=== PATIENT | female | born 1975 ===

== ENCOUNTER 2017-12-12 08:51 | Emergency (ER) | payer OTHER ==
[2017-12-12 09:09] VITALS: BP 136/92; PULSE 85; RESP 16; TEMP 98; O2SAT 100
--- NOTE | 2017-12-12 09:41 | ED PDOC ---
HPI: Abdomen Time Seen by Provider: 12/12/17 09:03 Chief Complaint (Nursing): Abdominal Pain Chief Complaint (Provider): abdominal pain History Per: Patient History/Exam Limitations: no limitations Onset/Duration Of Symptoms: Other (1 month) Current Symptoms Are (Timing): Intermittent Episodes Pain Scale Rating Of: 8 Location Of Pain/Discomfort: Epigastric Quality Of Discomfort: Burning Associated Symptoms: Nausea Exacerbating Factors: Food Alleviating Factors: Other (ranitidine) Additional Complaint(s): 42 yo ,f, PMHx/o Gastritis, H pilory infection resolved, Anemia presents to ED c/o epigastric abdominal pain started 1 months ago, intermittent, burning, 8/10 intensity, associated with nausea, aggravated with meals, alleviated with Ranitidine. Denies fever, vomiting, diarrhea, chest pain, palpitation, SOB, cough, heartburn. Reports had treatment for H pilory infection 3 months ago and iron for anemia, but pain persists. Reports also left lateral upperarm focal area of numbness for the last 4 days, intermittent, noticed also positional when sleeping over left side. denies headache, dizziness, cervical pain, cervical trauma, syncope, weakness, gait imbalance. PMD: Dr Mccarty" [place] Past Medical History Reviewed: Historical Data, Nursing Documentation, Vital Signs Vital Signs: Last Vital Signs Temp 98.0 F 12/12/17 09:03 Pulse 85 12/12/17 09:03 Resp 16 12/12/17 09:03 BP 136/92 H 12/12/17 09:03 Pulse Ox 100 12/12/17 11:09 - Medical History PMH: Anemia, Gastritis - Surgical History Surgical History: No Surg Hx - Family History Family History: States: [place] (father), Hypertension (parents) - Social History Alcohol: None - Home Medications Home Medications: Ambulatory Orders Medication Instructions Recorded Ranitidine HCl [Zantac 75] 75 mg PO BID #20 tablet 12/12/17 - Allergies Allergies/Adverse Reactions: Allergies Allergy/AdvReac Type Severity Reaction Status Date / Time No Known Allergies Allergy Verified 12/12/17 09:08 Review of Systems ROS Statement: Except As Marked, All Systems Reviewed And Found Negative Gastrointestinal: Positive for: Nausea, Abdominal Pain Neurological: Positive for: Numbness (left upper arm) Physical Exam - Physical Exam Appears: Positive for: Well, No Acute Distress Head Exam: Positive for: ATRAUMATIC, NORMOCEPHALIC Skin: Positive for: Normal Color Eye Exam: Positive for: Normal appearance Neck: Positive for: Normal, Supple Cardiovascular/Chest: Positive for: Regular Rate, Rhythm, Chest Non Tender. Negative for: Murmur Respiratory: Positive for: Normal Breath Sounds. Negative for: Crackles, Wheezing Gastrointestinal/Abdominal: Positive for: Soft, Tenderness (epigastric tenderness). Negative for: Distended, Guarding, Rebound Back: Positive for: Normal Inspection, L CVA Tenderness Extremity: Positive for: Normal ROM. Negative for: Tenderness, Pedal Edema Neurologic/Psych: Positive for: Alert, Oriented. Negative for: Motor/Sensory Deficits - Laboratory Results Result Diagrams: 12/12/17 09:58 12/12/17 09:58 - ECG ECG: Positive for: Interpreted By Me ECG Rhythm: Positive for: Normal QRS, Normal ST Segment, Sinus Rhythm O2 Sat by Pulse Oximetry: 100 Medical Decision Making Medical Decision Makin:40 AM Impression Acute Gastritis LUE Numbness Differential PUD, Acute pancreatitis, Acute cholecystitis, GERD, esophagitis Plan CBC, CMP, lipase ,troponin Urine dip, Urine preg test EKG ABd US CT Cervical spine -Zofran 4 mg IV -Pepcid 20 mg IV -Reevaluation 10:36 CBC, CMP normal tropoinin normal . EKG: NSR urine dip,urine preg test normal. CT Cervical spine: No fracture, no retropulsed fragments. some minor disc space narrowing noted the C5-C6 level with small osteophytic ridge disc bulge complex slightly left. minor degenerative spondylosis C5-C6 level as described. Impression Acute Gastritis Cervical Spondylosis C5-C6 Disposition - Clinical Impression Clinical Impression: Abdominal pain, Acute gastritis - Disposition Referrals: Torito Bullock MD [Medical Doctor] - Disposition Time: 16:33 Condition: STABLE Additional Instructions: Return to ER for any worse or new symptoms. Take medications as directed. Prescriptions: Ranitidine HCl [Zantac 75] 75 mg PO BID #20 tablet Instructions: Acute Abdomen (Belly Pain), Adult (DC), Vomiting in Children (ED) , Gastroenteritis in Children (ED), Gastroenteritis (ED) Forms: [employer] (Georgian) Print Language: ANDORRAN
[2017-12-12 10:09] LABS: BASO % 0.5 % (0.0-2.0); EOS % 0.4 % (0.0-4.0); LYMPH # 1.2 K/uL (1.0-4.3); MEAN CELL VOLUME 85.4 fl (81.0-99.0); MEAN CORPUSCULAR HEMOGLOBIN 28.5 pg (27.0-31.0); MEAN CORPUSCULAR HGB CONC 33.3 g/dL (33.0-37.0); MEAN PLATELET VOLUME 7.3 fl (7.2-11.7); MONO # 0.3 K/uL (0.0-0.8); MONO % 3.9 % (0.0-10.0); NEUT % 77.2 % (50.0-75.0); NRBC % 0.3 % (0.0-0.0); RBC 4.92 Mil/uL (3.80-5.20); RED CELL DISTRIBUTION WIDTH 19.8 % (11.5-14.5); WHITE BLOOD COUNT 6.5 K/uL (4.8-10.8)
[2017-12-12 10:20] LABS: ALB/GLOB RATIO 1.1 (1.0-2.1); ALBUMIN 4.4 g/dL (3.5-5.0); ALT/SGPT 40 U/L (9-52); AST/SGOT 25 U/L (14-36); BLOOD UREA NITROGEN 9 mg/dl (7-17); CALCIUM 9.1 mg/dL (8.4-10.2); GFR AFRICAN-AMERICAN > 60; GFR NON-AFRICAN AMERICAN > 60; LIPASE 129 U/L (23-300)
--- NOTE | 2017-12-12 10:50 | CT ---
PROCEDURE: CT scan of the cervical spine dated 12/12/2017 HISTORY: Left upper arm numbness COMPARISON: None available. TECHNIQUE: Axial computed tomography images were obtained of the cervic fat al spine without the use of intravenous contrast. Coronal and sagittal reformatted images were created and reviewed. Radiation dose: Total exam DLP = 414.03 mGy-cm. This CT exam was performed using one or more of the following dose reduction techniques: Automated exposure control, adjustment of the mA and/or kV according to patient size, and/or use of iterative reconstruction technique. FINDINGS: VERTEBRAE: Current study reveals no acute compression fractures no retropulsed fragments. Vertebral bodies exhibit normal stature. Vertebral bodies and facets normally aligned. Some minor on DISCS/SPINAL CANAL/NEURAL FORAMINA: Minor disc space narrowing noted at the C5-C6 level with small osteophytic ridge disc bulge complex slightly left. Disc appears to minimally indent the ventral surface of thecal sac though does not appear to cause significant cord compression so far as can be seen. There is minimal degenerative squaring of the uncovertebral joints. Facets a prominent. Central canal and exit foramina do appear adequate. Remaining levels exhibit relatively adequate disc height. No disc herniation or significant disc bulges. Central canal and exit foramina do appear adequate. PARASPINAL SOFT TISSUES: Unremarkable. OTHER FINDINGS: None. IMPRESSION: No acute fractures. Minor degenerative spondylosis C5-C6 level as described.
--- NOTE | 2017-12-12 13:23 | US ---
HISTORY: epigastric abd pain.r/o cholecystitis COMPARISON: None. TECHNIQUE: Sonographic evaluation of the right upper quadrant of the abdomen. FINDINGS: LIVER: Liver measures 17.5 cm in length. Normal echogenicity of the liver parenchyma. No mass. No intrahepatic bile duct dilatation. GALLBLADDER: Unremarkable. No gallstones. No sonographic Reza sign COMMON BILE DUCT: Measures mm. No stones. No dilatation. PANCREAS: Unremarkable as visualized. No mass. No ductal dilatationAll. RIGHT KIDNEY: Measures 12.1 x 6.3 x 4.3 cm in length. Normal echogenicity. No calculus, mass, or hydronephrosis. AORTA: No aneurysmal dilatation. IVC: Unremarkable. OTHER FINDINGS: None . IMPRESSION: No evidence of cholelithiasis
== END 2017-12-12 16:33 | disposition home or self-care (01) ==
LOC: H.ER 08:51
DX: K29.00 Acute gastritis without bleeding (principal); M50.222 Other cervical disc displacement at C5-C6 level
CPT/HCPCS: 72125; 76705; 80053; 81025; 83690; 84484; 85025; 96374; 96375; 99282; J2405

== ENCOUNTER 2018-02-04 08:56 | Emergency (ER) | payer SELFPAY ==
[2018-02-04 09:20] VITALS: RESP 16; O2SAT 98
[2018-02-04] MEDS ORDERED: Sodium Chloride 0.9% 1,000 ML IV STA (09:23)
[2018-02-04] MEDS ORDERED: Alum-Mag Hydrox-Simethicone Susp (30 mL) PO ONE (09:39)
[2018-02-04] MEDS ORDERED: Alum-Mag Hydrox-Simethicone Susp (30 mL) ONE (10:27)
[2018-02-04 10:35] LABS: BASO % 0.6 % (0.0-2.0); EOS # 0.1 K/uL (0.0-0.7); EOS % 1.7 % (0.0-4.0); HEMOGLOBIN 12.8 g/dL (12.0-16.0); LYMPH # 1.2 K/uL (1.0-4.3); LYMPH % 22.7 % (20.0-40.0); MEAN CELL VOLUME 88.3 fl (81.0-99.0); MEAN CORPUSCULAR HEMOGLOBIN 28.9 pg (27.0-31.0); MEAN CORPUSCULAR HGB CONC 32.8 g/dL (33.0-37.0); MEAN PLATELET VOLUME 7.9 fl (7.2-11.7); MONO # 0.2 K/uL (0.0-0.8); MONO % 4.7 % (0.0-10.0); NEUT # 3.7 K/uL (1.8-7.0); NEUT % 70.3 % (50.0-75.0); NRBC % 0.1 % (0.0-0.0); RBC 4.41 Mil/uL (3.80-5.20); RED CELL DISTRIBUTION WIDTH 14.1 % (11.5-14.5); WHITE BLOOD COUNT 5.3 K/uL (4.8-10.8)
[2018-02-04 10:44] LABS: SQUAMOUS EPITHIAL < 1 /hpf (0-5); URINE BILIRUBIN NEGATIVE (NEGATIVE); URINE BLOOD SMALL (NEGATIVE); URINE CLARITY CLEAR (Clear); URINE COLOR STRAW (YELLOW); URINE GLUCOSE (UA) NEG (Normal); URINE LEUKOCYTE ESTERASE NEG Leu/uL (Negative); URINE PROTEIN NEGATIVE (NEGATIVE); URINE UROBILINOGEN 0.2-1.0 mg/dL (0.2-1.0)
[2018-02-04 10:47] LABS: ALB/GLOB RATIO 1.1 (1.0-2.1); ALBUMIN 4.2 g/dL (3.5-5.0); ALT/SGPT 36 U/L (9-52); AST/SGOT 26 U/L (14-36); BLOOD UREA NITROGEN 8 mg/dl (7-17); CALCIUM 9.6 mg/dL (8.4-10.2); GFR AFRICAN-AMERICAN > 60; GFR NON-AFRICAN AMERICAN > 60; LIPASE 149 U/L (23-300)
--- NOTE | 2018-02-04 11:36 | RAD ---
HISTORY: Central chest pain COMPARISON: No prior. TECHNIQUE: Chest PA and lateral FINDINGS: LUNGS: No acute consolidation. Tiny densities right CP angle region could represent some minor overlying or vessel on end artifact however tiny granuloma not excluded. PLEURA: No significant pleural effusion identified. No pneumothorax apparent. CARDIOVASCULAR: Normal. OSSEOUS STRUCTURES: Minor multilevel degenerative spondylosis of the thoracic spine. The. VISUALIZED UPPER ABDOMEN: Normal. OTHER FINDINGS: None. IMPRESSION: No acute consolidation. Insert
--- NOTE | 2018-02-04 12:18 | ED PDOC ---
HPI: General Adult Time Seen by Provider: 02/04/18 09:09 Chief Complaint (Nursing): Chest Pain Chief Complaint (Provider): Chest Pain History Per: Patient History/Exam Limitations: no limitations Onset/Duration Of Symptoms: Days (x1 month) Current Symptoms Are (Timing): Still Present Additional Complaint(s): 42 y/o female with pmhx of gastritis, who re-presents to the ED complaining of epigastric burning and chest discomfort associated with nausea ongoing intermittently for over a month. Denies hematemesis, bloody stools, melena, weight loss, or fever. Patient reports she completed a 2 week course of Omeprazole which improved her symptoms. Patient also denies shortness of breath , cough, or radiation of pain. PMD: Non-[facility] Provider Past Medical History Reviewed: Historical Data, Nursing Documentation, Vital Signs Vital Signs: Last Vital Signs Temp 98.2 F 02/04/18 12:25 Pulse 68 02/04/18 12:25 Resp 16 02/04/18 12:25 BP 117/74 02/04/18 12:25 Pulse Ox 98 02/04/18 12:30 - Medical History PMH: Anemia, Gastritis - Surgical History Surgical History: No Surg Hx - Family History Family History: States: [place] (father), Hypertension (parents) - Social History Current smoker - smoking cessation education provided: No Alcohol: None Drugs: Denies - Home Medications Home Medications: Ambulatory Orders Medication Instructions Recorded Naproxen [Naproxen] 500 mg PO PRN PRN 02/04/18 Omeprazole 40 mg PO DAILY #20 capsule. 02/04/18 Omeprazole [Omeprazole] 40 mg PO DAILY 02/04/18 Ondansetron ODT [Zofran ODT] 4 mg PO Q6 PRN #10 odt 02/04/18 - Allergies Allergies/Adverse Reactions: Allergies Allergy/AdvReac Type Severity Reaction Status Date / Time No Known Allergies Allergy Verified 12/12/17 09:08 Review of Systems ROS Statement: Except As Marked, All Systems Reviewed And Found Negative Constitutional: Negative for: Fever, Weight loss Cardiovascular: Positive for: Chest Pain Respiratory: Negative for: Cough, Shortness of Breath Gastrointestinal: Positive for: Nausea, Abdominal Pain. Negative for: Melena, Hematochezia, Hematemesis Physical Exam - Reviewed Nursing Documentation Reviewed: Yes Vital Signs Reviewed: Yes - Physical Exam Appears: Positive for: Non-toxic, No Acute Distress Head Exam: Positive for: ATRAUMATIC, NORMAL INSPECTION, NORMOCEPHALIC Skin: Positive for: Normal Color, Warm, Dry. Negative for: Rash Eye Exam: Positive for: EOMI, Normal appearance, PERRL Neck: Positive for: Normal, Painless ROM, Supple Cardiovascular/Chest: Positive for: Regular Rate, Rhythm. Negative for: Murmur Respiratory: Positive for: Normal Breath Sounds. Negative for: Respiratory Distress Gastrointestinal/Abdominal: Positive for: Tenderness (upper abdomen) Back: Positive for: Normal Inspection. Negative for: L CVA Tenderness, R CVA Tenderness, Vertebral Tenderness Extremity: Positive for: Normal ROM. Negative for: Pedal Edema, Deformity Neurologic/Psych: Positive for: Alert, Oriented. Negative for: Motor/Sensory Deficits - Laboratory Results Result Diagrams: 02/04/18 10:27 02/04/18 10:27 - ECG O2 Sat by Pulse Oximetry: 98 (RA) Pulse Ox Interpretation: Normal Medical Decision Making Medical Decision Makin:23 Plan: --EKG --CMP --Lipase --Troponin I --CBC --CXR --Maalox 30ml PO --Sodium Chloride 0.9% 1,000 mls/hr --Pepcid 20mg IVP --Urinalysis --Reevaluation Prior records reviewed revealing the patient was seen at this facility December 12 and given an abdominal US which was negative. Today EKG shows NSR at 62 bpm, no ST changes. CXR was negative as read by radiologist. Blood work results were unremarkable. Patient given Maalox and IV Pepcid with resolution of symptoms. Patient states she has an appointment on Friday with clinic for further evaluation. Scribe Attestation: Documented by Chad Fournier, acting as a scribe for Ta Heath III, DO. Provider Scribe Attestation: All medical record entries made by the Scribe were at my direction and personally dictated by me. I have reviewed the chart and agree that the record accurately reflects my personal performance of the history, physical exam, medical decision making, and the department course for this patient. I have also personally directed, reviewed, and agree with the discharge instructions and disposition. Disposition - Clinical Impression Clinical Impression: Chest pain, Acute gastritis - Patient ED Disposition Is Patient to be Admitted: No Counseled Patient/Family Regarding: Studies Performed, Diagnosis, Need For Followup, Rx Given - Disposition Referrals: [facility] [Outside] Disposition: Routine/Home Disposition Time: 12:00 Condition: STABLE Additional Instructions: Followup with clinic for further testing. Prescriptions: Omeprazole 40 mg PO DAILY #20 capsule. Ondansetron ODT [Zofran ODT] 4 mg PO Q6 PRN #10 odt PRN Reason: Nausea/Vomiting Instructions: Chest Pain, Gastritis (DC) Forms: [employer] (Estonian) Print Language: LITHUANIAN
[2018-02-04 12:27] VITALS: BP 117/74; PULSE 68; TEMP 98.2
--- NOTE | 2018-02-05 23:01 | CARD ---
APPROVED REPORT EKG Measurement Heart [id number] CO [id number] <Conclusion> Normal sinus rhythm Normal ECG
== END 2018-02-04 12:30 | disposition home or self-care (01) ==
LOC: H.ER 08:56
DX: K29.00 Acute gastritis without bleeding (principal); R07.89 Other chest pain
CPT/HCPCS: 71046; 80053; 81003; 81025; 83690; 84484; 85025; 93005; 99284; J7040

== ENCOUNTER 2018-05-12 17:48 | Emergency (ER) | payer SELFPAY ==
[2018-05-12 18:45] LABS: BASO % 0.7 % (0.0-2.0); EOS # 0.2 K/uL (0.0-0.7); EOS % 2.9 % (0.0-4.0); HEMOGLOBIN 11.8 g/dL (12.0-16.0); LYMPH # 1.6 K/uL (1.0-4.3); LYMPH % 28.7 % (20.0-40.0); MEAN CORPUSCULAR HEMOGLOBIN 27.9 pg (27.0-31.0); MEAN CORPUSCULAR HGB CONC 32.5 g/dL (33.0-37.0); MEAN PLATELET VOLUME 7.6 fl (7.2-11.7); MONO # 0.4 K/uL (0.0-0.8); MONO % 7.3 % (0.0-10.0); NEUT # 3.4 K/uL (1.8-7.0); NEUT % 60.4 % (50.0-75.0); RBC 4.22 Mil/uL (3.80-5.20); RED CELL DISTRIBUTION WIDTH 18.6 % (11.5-14.5); WHITE BLOOD COUNT 5.5 K/uL (4.8-10.8)
[2018-05-12 19:00] LABS: BLOOD UREA NITROGEN 13 mg/dl (7-17); CALCIUM 8.8 mg/dL (8.4-10.2); GFR AFRICAN-AMERICAN > 60; GFR NON-AFRICAN AMERICAN > 60
--- NOTE | 2018-05-12 19:04 | ED PDOC ---
HPI: General Adult Time Seen by Provider: 05/12/18 18:20 Chief Complaint (Nursing): Weakness/Neurological Deficit Chief Complaint (Provider): Weakness/Neurological Deficit History Per: Patient History/Exam Limitations: no limitations Onset/Duration Of Symptoms: Days (x2 months), Worse Since (x1 week) Current Symptoms Are (Timing): Still Present Additional Complaint(s): 43 year old female presents to the ED for evaluation of left sided body numbness for approx. 2 months, worsening the last week. Patient reports a hx of anemia due to heavy menstrual cycles, and her PMD told her that due to that, she may experience paresthesia to her body such as she is experiencing. She is currently on iron pills, and denies headache, dizziness, weakness, and problems with speech or gait. PMD: not in the area NIHSS Stroke Scale - Date/Time Evaluation Performed Date Performed: 05/12/18 Time Performed: 18:20 When Was NIHSS Performed: Baseline - How Severe is the Stroke Level of Consciousness: 0=Alert LOC to Questions: 0=Both comments correct LOC to commands: 0=Obeys both correctly Best Gaze: 0=Normal Visual: 0=No visual loss Facial: 0=Normal Motor Arm - Left: 0=No drift Motor Arm - Right: 0=No drift Motor Leg - Left: 0=No drift Motor Leg - Right: 0=No drift Limb Ataxia: 0=Absent Sensory: 0=Normal Best Language: 0=No aphasia Dysarthia: 0=Normal articulation Extinction & Inattention (Neglect): 0=Normal, no object Score: 0 Severity Of Stroke: 0 = No Stroke rTPA Inclusion/Exclusion - Refusal of Treatment Patient Refused Treatment: No - Inclusion Criteria for Altepase Patient is 18 years or Older: Yes The Clinical Diagnosis of Ischemic Stroke That is Causing a Potentially Disabling Neurological Deficit: No Time of Onset is Well Established to be Less Than 270 Minute Before Treatment Would Begin: No Risk/Benefit Discussed With Patient/Family Member Present: No Past Medical History Reviewed: Historical Data, Nursing Documentation, Vital Signs Vital Signs: Last Vital Signs Temp 98.1 F 05/12/18 20:41 Pulse 59 L 05/12/18 20:41 Resp 18 05/12/18 20:41 BP 122/77 05/12/18 20:41 Pulse Ox 98 05/13/18 03:06 - Medical History PMH: Anemia, Gastritis - Family History Family History: States: [place] (father), Hypertension (parents) - Home Medications Home Medications: Ambulatory Orders Medication Instructions Recorded Naproxen [Naproxen] 500 mg PO PRN PRN 02/04/18 Omeprazole 40 mg PO DAILY #20 capsule. 02/04/18 Omeprazole [Omeprazole] 40 mg PO DAILY 02/04/18 Ondansetron ODT [Zofran ODT] 4 mg PO Q6 PRN #10 odt 02/04/18 predniSONE [predniSONE Tab] 20 mg PO DAILY #10 tab 05/12/18 - Allergies Allergies/Adverse Reactions: Allergies Allergy/AdvReac Type Severity Reaction Status Date / Time No Known Allergies Allergy Verified 12/12/17 09:08 Review of Systems ROS Statement: Except As Marked, All Systems Reviewed And Found Negative Neurological: Positive for: Numbness (+ paresthesias to entire left side of body ). Negative for: Weakness, Change in Speech, Headache, Dizziness, Other ( issues with gait) Physical Exam - Reviewed Nursing Documentation Reviewed: Yes Vital Signs Reviewed: Yes - Physical Exam Appears: Positive for: No Acute Distress Head Exam: Positive for: ATRAUMATIC, NORMOCEPHALIC Skin: Positive for: Normal Color, Warm, Dry Eye Exam: Positive for: Normal appearance ENT: Positive for: Normal ENT Inspection Neck: Positive for: Normal, Painless ROM, Supple Cardiovascular/Chest: Positive for: Regular Rate, Rhythm. Negative for: Murmur Respiratory: Positive for: Normal Breath Sounds. Negative for: Accessory Muscle Use, Respiratory Distress Gastrointestinal/Abdominal: Positive for: Normal Exam, Soft. Negative for: Tenderness Back: Positive for: Normal Inspection Extremity: Positive for: Normal ROM Neurologic/Psych: Positive for: Alert, Oriented (x3). Negative for: Motor/ Sensory Deficits, Aphasia, Facial Droop - Laboratory Results Result Diagrams: 05/12/18 18:41 05/12/18 18:41 - ECG O2 Sat by Pulse Oximetry: 98 (RA) Pulse Ox Interpretation: Normal Medical Decision Making Medical Decision Making: Time: 1829 Initial Impression: left sided body paresthesia Ddx includes but is not limited to: CVA, peripheral neuropathy, multiple sclerosis, anemia, electrolyte abnormalities Initial Plan: --CT head w/o contrast --EKG --BMP --Urine dipstick --Urine --CBC with differential Scribe Attestation: Documented by Rose Mary Yates, acting as a scribe for Marisel Lyman MD. Provider Scribe Attestation: All medical record entries made by the Scribe were at my direction and personally dictated by me. I have reviewed the chart and agree that the record accurately reflects my personal performance of the history, physical exam, medical decision making, and the department course for this patient. I have also personally directed, reviewed, and agree with the discharge instructions and disposition. Disposition - Clinical Impression Clinical Impression: Paresthesia - Patient ED Disposition Is Patient to be Admitted: Transfer of Care Counseled Patient/Family Regarding: Studies Performed, Diagnosis - Disposition Referrals: Justo Carrillo MD [Medical Doctor] - Disposition: Transfer of Care Disposition Time: 19:00 Condition: STABLE Prescriptions: predniSONE [predniSONE Tab] 20 mg PO DAILY #10 tab Instructions: Paresthesias (DC) Forms: [employer] (Iraqi) Print Language: INDONESIAN Patient Signed Over To: Adiel Nunez
--- NOTE | 2018-05-12 19:23 | ED PDOC ---
- Laboratory Results Result Diagrams: 05/12/18 18:41 05/12/18 18:41 - ECG O2 Sat by Pulse Oximetry: 98 (RA) Medical Decision Making Medical Decision Makin Transfer of care endorsed from Dr. Lyman to Dr. Nunez pending CT Head. 1939 CT Head FINDINGS: Brain: There is no acute intracranial hemorrhage or mass effect. The normal ge -white delineation is preserved. Ventricles: The ventricles are normal in size and configuration for age. Bones/joints: The calvarium is intact. Soft tissues: Unremarkable. Sinuses: The paranasal sinues are normally aerated. Mastoid air cells: Unremarkable as visualized. No mastoid effusion. IMPRESSION: No acute intracranial hemorrhage or edema. Explained results of CT to patient. Advised her to followup with neurology and that she is likely suffering from peripheral parasthesias. Patient requesting "medication" for numbness, advised patient to try short course of steroids for possible cervical radiculopathy causing parasthesias. Patient understands importance of followup, return precautions given. Patient well appearing, no weakness on discharge. Scribe Attestation: Documented by Rose Mary Yates, acting as a scribe for Adiel Nunez MD. Provider Scribe Attestation: All medical record entries made by the Scribe were at my direction and personally dictated by me. I have reviewed the chart and agree that the record accurately reflects my personal performance of the history, physical exam, medical decision making, and the department course for this patient. I have also personally directed, reviewed, and agree with the discharge instructions and disposition. Disposition - Clinical Impression Clinical Impression: Paresthesia - POA Present On Arrival: None - Disposition Referrals: Justo Carrillo MD [Medical Doctor] - Disposition: Routine/Home Disposition Time: 19:40 Condition: STABLE Prescriptions: predniSONE [predniSONE Tab] 20 mg PO DAILY #10 tab Instructions: Paresthesias (DC) Forms: [employer] (Slovenian) Print Language: MOHAWK
[2018-05-12 20:42] VITALS: BP 122/77; PULSE 59; RESP 18; TEMP 98.1
[2018-05-13 03:06] VITALS: O2SAT 98
--- NOTE | 2018-05-13 07:19 | CARD ---
APPROVED REPORT Date of service: 05/12/2018 <Conclusion> Normal sinus rhythm Normal ECG
--- NOTE | 2018-05-13 10:40 | CT ---
Date of service: 05/12/2018 PROCEDURE: CT HEAD WITHOUT CONTRAST. HISTORY: left sided numbness for 2 months COMPARISON: None available. TECHNIQUE: Axial computed tomography images were obtained through the head/brain without intravenous contrast. Radiation dose: Total exam DLP = 802 mGy-cm. This CT exam was performed using one or more of the following dose reduction techniques: Automated exposure control, adjustment of the mA and/or kV according to patient size, and/or use of iterative reconstruction technique. FINDINGS: HEMORRHAGE: No intracranial hemorrhage. BRAIN: No mass effect or edema. No atrophy or chronic microvascular ischemic changes. VENTRICLES: Unremarkable. No hydrocephalus. CALVARIUM: Unremarkable. PARANASAL SINUSES: Unremarkable as visualized. No significant inflammatory changes. MASTOID AIR CELLS: Unremarkable as visualized. No inflammatory changes. OTHER FINDINGS: None. IMPRESSION: Normal CT of the Head. Concordant results (preliminary interpretation) provided by [facility].
== END 2018-05-12 20:45 | disposition home or self-care (01) ==
LOC: H.ER 17:48
DX: R20.2 Paresthesia of skin (principal); D64.9 Anemia, unspecified; N92.0 Excessive and frequent menstruation with regular cycle

== ENCOUNTER 2018-07-03 21:56 | Emergency (ER) | payer SELFPAY ==
[2018-07-03 23:30] VITALS: BP 136/81; PULSE 62; O2SAT 100
--- NOTE | 2018-07-03 23:45 | ED PDOC ---
HPI: Psych/Substance Abuse Time Seen by Provider: 07/03/18 22:18 Chief Complaint (Nursing): Anxiety Chief Complaint (Provider): Anxiety History Per: Patient History/Exam Limitations: no limitations Onset/Duration Of Symptoms: Days (x1) Current Symptoms Are (Timing): Still Present Associated Symptoms: Anxiety. denies: Suicidal Thoughts, Suicidal Plan, Other (HI) Additional Complaint(s): Swathi Fu is a 43 year old female, with a past medical history of gastritis, who presents to the emergency department complaining of p alpitations, feeling very anxious, onset for x1 week. Patient states she has been feeling very nervous and stressed recently. She spoke with her PMD at clinic in regards to symptoms and was referred to a therapist. She spoke with therapist last week and was supposed to get a call back for an appointment but therapist never called. She denies any suicidal or homicidal ideation. No further medical complaints. PMD: Clinic, Dr. Crawford Past Medical History Reviewed: Historical Data, Nursing Documentation, Vital Signs Vital Signs: Last Vital Signs Temp 98.2 F 07/03/18 22:04 Pulse 62 07/03/18 23:30 Resp 19 07/03/18 22:04 BP 136/81 07/03/18 23:30 Pulse Ox 100 07/03/18 23:30 - Medical History PMH: Anemia, Gastritis - Surgical History Surgical History: No Surg Hx - Family History Family History: States: [place] (father), Hypertension (parents) - Home Medications Home Medications: Ambulatory Orders Medication Instructions Recorded Naproxen 500 mg PO PRN PRN 02/04/18 Omeprazole 40 mg PO DAILY 02/04/18 Omeprazole 40 mg PO DAILY #20 capsule. 02/04/18 Ondansetron ODT [Zofran ODT] 4 mg PO Q6 PRN #10 odt 02/04/18 predniSONE [predniSONE Tab] 20 mg PO DAILY #10 tab 05/12/18 - Allergies Allergies/Adverse Reactions: Allergies Allergy/AdvReac Type Severity Reaction Status Date / Time No Known Allergies Allergy Verified 12/12/17 09:08 Review of Systems ROS Statement: Except As Marked, All Systems Reviewed And Found Negative Psych: Positive for: Anxiety, Depression. Negative for: Suicidal ideation (or HI) Physical Exam - Reviewed Nursing Documentation Reviewed: Yes Vital Signs Reviewed: Yes - Physical Exam Appears: Positive for: No Acute Distress Head Exam: Positive for: ATRAUMATIC, NORMOCEPHALIC Skin: Positive for: Normal Color, Warm, Dry Eye Exam: Positive for: Normal appearance, EOMI, PERRL Neck: Positive for: Painless ROM Cardiovascular/Chest: Positive for: Regular Rate, Rhythm. Negative for: Murmur Respiratory: Positive for: Normal Breath Sounds. Negative for: Respiratory Distress Gastrointestinal/Abdominal: Positive for: Normal Exam, Soft. Negative for: Ten derness Extremity: Positive for: Normal ROM (upper and lower extremities). Negative for: Deformity, Swelling Neurologic/Psych: Positive for: Alert, Oriented, Gait (steady) - ECG O2 Sat by Pulse Oximetry: 100 (RA) Pulse Ox Interpretation: Normal Medical Decision Making Medical Decision Making: Time: 22:18 A/P: 43 y/o female presenting with anxiety and depression. Patient is very well appearing with normal vital signs. Initial Plan: --Ativan 1 mg PO --Reevaluation --Will provide patient with referral to [facility]. 0000 Patient feeling better. Vitals normal. Advised to followup with [facility] ----- Scribe Attestation: Documented by Conrado Bobo, acting as a scribe for Adiel Nunez MD. Provider Scribe Attestation: All medical record entries made by the Scribe were at my direction and personally dictated by me. I have reviewed the chart and agree that the record accurately reflects my personal performance of the history, physical exam, medical decision making, and the department course for this patient. I have also personally directed, reviewed, and agree with the discharge instructions and disposition. Disposition - Clinical Impression Clinical Impression: Anxiety - Disposition Referrals: [facility] [Outside] Panfilo Crawford MD [Family Provider] - Disposition: Routine/Home Disposition Time: 00:40 Condition: STABLE Additional Instructions: [facility]. Instructions: Anxiety, Adult (DC) Forms: [employer] (Vietnamese) Print Language: WOLOF
[2018-07-04 01:07] VITALS: RESP 17; TEMP 98.1
== END 2018-07-04 00:15 | disposition home or self-care (01) ==
LOC: H.ER 21:56
DX: F41.9 Anxiety disorder, unspecified (principal)

== ENCOUNTER 2018-07-05 08:42 | Emergency (ER) | payer SELFPAY ==
[2018-07-05 08:54] VITALS: BMI 25.0
[2018-07-05 10:00] LABS: BASO % 0.7 % (0.0-2.0); EOS # 0.1 K/uL (0.0-0.7); EOS % 1.1 % (0.0-4.0); HEMOGLOBIN 13.7 g/dL (12.0-16.0); LYMPH # 0.9 K/uL (1.0-4.3); LYMPH % 19.7 % (20.0-40.0); MEAN CELL VOLUME 89.1 fl (81.0-99.0); MEAN CORPUSCULAR HGB CONC 33.6 g/dL (33.0-37.0); MEAN PLATELET VOLUME 7.8 fl (7.2-11.7); MONO # 0.3 K/uL (0.0-0.8); MONO % 5.4 % (0.0-10.0); NEUT # 3.5 K/uL (1.8-7.0); NEUT % 73.1 % (50.0-75.0); NRBC % 0.1 % (0.0-0.0); RBC 4.58 Mil/uL (3.80-5.20); RED CELL DISTRIBUTION WIDTH 16.6 % (11.5-14.5); WHITE BLOOD COUNT 4.7 K/uL (4.8-10.8)
[2018-07-05 10:03] LABS: ALB/GLOB RATIO 1.1 (1.0-2.1); ALT/SGPT 32 U/L (9-52); AST/SGOT 27 U/L (14-36); BLOOD UREA NITROGEN 10 mg/dl (7-17); CALCIUM 8.8 mg/dL (8.4-10.2); GFR NON-AFRICAN AMERICAN > 60; LIPASE 137 U/L (23-300)
--- NOTE | 2018-07-05 10:04 | ED PDOC ---
HPI: General Adult Time Seen by Provider: 07/05/18 09:00 Chief Complaint (Nursing): Palpitations Chief Complaint (Provider): Palpitations History Per: Patient, [employer] ([id number]) History/Exam Limitations: no limitations Onset/Duration Of Symptoms: Days (x2) Current Symptoms Are (Timing): Still Present Additional Complaint(s): 43 year old female presents to the ED for palpitations. Patient reports she was seen in this ED for the same symptoms but today she was feeling very nervous. On Friday she was given referral for outpatient psych. She stated she will be monica le to make an appointment tomorrow. All of the symptoms have continued since, but the palpitations have gotten worse. Patient denies radiation of symptoms, chest pain, shortness of breath, vomiting, or any other medical complaints. She is requesting medication to sleep and for anxiety. PMD: Dr. Debra Larson at the [facility] Past Medical History Reviewed: Historical Data, Nursing Documentation, Vital Signs Vital Signs: Last Vital Signs Temp 97.9 F 07/05/18 08:53 Pulse 60 07/05/18 08:53 Resp 18 07/05/18 08:53 BP 126/82 07/05/18 08:53 Pulse Ox 100 07/05/18 08:53 - Medical History PMH: Anemia, Anxiety, Gastritis - Family History Family History: States: [place] (father), Hypertension (parents) - Home Medications Home Medications: Ambulatory Orders Medication Instructions Recorded Naproxen 500 mg PO PRN PRN 02/04/18 Omeprazole 40 mg PO DAILY 02/04/18 Omeprazole 40 mg PO DAILY #20 capsule. 02/04/18 Ondansetron ODT [Zofran ODT] 4 mg PO Q6 PRN #10 odt 02/04/18 predniSONE [predniSONE Tab] 20 mg PO DAILY #10 tab 05/12/18 - Allergies Allergies/Adverse Reactions: Allergies Allergy/AdvReac Type Severity Reaction Status Date / Time No Known Allergies Allergy Verified 07/05/18 09:15 Review of Systems ROS Statement: Except As Marked, All Systems Reviewed And Found Negative Cardiovascular: Positive for: Palpitations Respiratory: Negative for: Shortness of Breath Gastrointestinal: Negative for: Nausea, Vomiting Physical Exam - Reviewed Nursing Documentation Reviewed: Yes Vital Signs Reviewed: Yes - Physical Exam Appears: Positive for: Non-toxic, No Acute Distress Head Exam: Positive for: ATRAUMATIC, NORMOCEPHALIC Skin: Positive for: Normal Color, Warm, Dry Eye Exam: Positive for: Normal appearance, EOMI, PERRL Neck: Positive for: Normal Cardiovascular/Chest: Positive for: Regular Rate, Rhythm. Negative for: Murmur Respiratory: Positive for: Normal Breath Sounds. Negative for: Respiratory Distress Gastrointestinal/Abdominal: Positive for: Normal Exam, Soft. Negative for: Tenderness Extremity: Positive for: Normal ROM (upper and lower). Negative for: Pedal Edema, Deformity Neurologic/Psych: Positive for: Alert, Oriented (x3) - Laboratory Results Result Diagrams: 07/05/18 09:28 07/05/18 09:28 - ECG O2 Sat by Pulse Oximetry: 100 (RA) Pulse Ox Interpretation: Normal Medical Decision Making Medical Decision Making: Time: 918 Workup for cardiac cause of palpitation versus anxiety Initial Plan: --Will send labs including troponin --EKG --PO Ativan --Reevaluation --Discussed with central office frame wirer hte importance for outpatient psych follow up as the treatment in the ED is limited and this diagnoses requires multiple visits with healthcare specialist. Patient expresses understanding. Time: 1055 --labs showed no clinically significant abnormalities. Patient reports improvement with palpitations. Will follow up with psychiatry and PMD. Scribe Attestation: Documented by Irma Avelar, acting as a scribe for Rhoda Fong MD Provider Scribe Attestation: All medical record entries made by the Scribe were at my direction and per sonally dictated by me. I have reviewed the chart and agree that the record accurately reflects my personal performance of the history, physical exam, medical decision making, and the department course for this patient. I have also personally directed, reviewed, and agree with the discharge instructions and disposition. Disposition - Clinical Impression Clinical Impression: Palpitations, Anxiety - Disposition Disposition Time: 10:56 Condition: IMPROVED Additional Instructions: Follow up with your primary medical doctor in one week and call to follow up with psychiatry. Today your lab work showed no abnormalities and your hemoglobin is 13.7. Your EKG shows a normal heart rhythm. Return to the emergency department if symptoms worsen or if new symptoms develop. Instructions: Anxiety, Adult (DC), Palpitations (DC) Forms: [employer] (Bruneian), [employer] (Mongolian) Print Language: TURKISH
[2018-07-05 11:57] VITALS: BP 107/73; PULSE 63; RESP 16; TEMP 98.4; O2SAT 99
--- NOTE | 2018-07-06 00:16 | CARD ---
APPROVED REPORT Date of service: 07/05/2018 EKG Measurement Heart [id number] <Conclusion> Sinus bradycardia Otherwise normal ECG
== END 2018-07-05 11:30 | disposition home or self-care (01) ==
LOC: H.ER 08:42
DX: R00.2 Palpitations (principal); F41.9 Anxiety disorder, unspecified